=== PATIENT | male | born 1960 | race African-American/Black ===

== ENCOUNTER 2018-11-10 13:01 | Emergency (ER) | payer OTHER ==
[~2018-11-10] VITALS: Ht 188 cm; Wt 81.6 kg
--- NOTE | 2018-11-10 13:06 | NUR ---
PT BIB COWORKER C/O LLE LACERATION VS SAW X 1230 TODAY. STATES NOT UTD W/ TETANUS, PT IS AAOX4, NOT IN RESPIRATORY DISTRESS, V/S STABLE, KEPT RESTED AND COMFORTABLE.
--- NOTE | 2018-11-10 13:15 | NUR ---
SEEN AND EXAMINED BY DR. MADISON.
[2018-11-10] MEDS ORDERED: MORPHINE SULFATE INJ 4 MG/ML DISP.SYRIN ONE (13:26)
[2018-11-10] MEDS ORDERED: CEPHALEXIN MONOHYDRATE 500 MG CAPSULE PO ONE ×2 (13:28→13:30)
[2018-11-10] MEDS ORDERED: TDAP [DIPH/PERTUSSIS/TET] 0.5 ML VIAL IM ONE ×2 (13:28→13:30)
[2018-11-10] MEDS ORDERED: LIDOCAINE 1%-EPI 1:100,000 20 ML VIAL ONE ×2 (13:28→13:35)
[2018-11-10] MEDS ORDERED: ONDANSETRON 4 MG TAB.RAPDIS ONE (13:28)
[2018-11-10] MEDS ORDERED: LIDOCAINE 1%-EPI 1:100,000 50 ML VIAL IJ ONE (13:30)
[2018-11-10] MEDS ORDERED: MORPHINE SULFATE INJ 2 MG/ML DISP.SYRIN IM ONE (13:30)
[2018-11-10] MEDS ORDERED: ONDANSETRON 4 MG TAB.RAPDIS SL ONE (13:30)
--- NOTE | 2018-11-10 13:30 | NUR ---
FREELANCE DIRECTOR AT BEDSIDE FOR XRAY.
[2018-11-10] MEDS ORDERED: CEFAZOLIN 1 GM in IV D5W 50 ML IV STA (13:38)
[2018-11-10] MEDS ORDERED: HYDROMORPHONE INJ 0.5 MG/0.5 ML SYRINGE IV ONE (14:00)
[2018-11-10] MEDS ORDERED: ONDANSETRON HCL/PF 4 MG/2 ML VIAL IV ONE (14:00)
--- NOTE | 2018-11-10 14:06 | NUR ---
[facility] CALLED. EXPECTING CALL FROM THE DR POWDER LINE REPAIRER
[2018-11-10 14:07] LABS: BASOPHILS # (AUTO) 0.1 /CMM (0.0-0.2); HEMATOCRIT 44 % (39-51); HEMOGLOBIN 14.8 g/dL (13.5-17.5); LYMPHOCYTES # (AUTO) 1.9 /CMM (0.8-4.8); LYMPHOCYTES % (AUTO) 33.8 % (20.0-44.0); MEAN CORPUSCULAR HGB CONC 34 g/dl (31.0-36.0); MEAN CORPUSCULAR VOLUME 89 fL (80-96); MONOCYTES # (AUTO) 0.4 /CMM (0.1-1.30); MONOCYTES % (AUTO) 7.2 % (2.0-12.0); NEUTROPHILS # (AUTO) 3.3 /CMM (1.8-8.9); PLATELET COUNT (AUTO) 218 /CMM (150-450); RED BLOOD CELL COUNT(AUTO) 4.94 MIL/uL (4.5-6.0); WHITE BLOOD COUNT (AUTO) 5.8 K/uL (4.3-11.0)
[2018-11-10] MEDS ORDERED: HYDROMORPHONE 1 MG/1 ML DISP.SYRIN ONE (14:10)
[2018-11-10] MEDS ORDERED: ONDANSETRON HCL/PF 4 MG/2 ML VIAL ONE (14:10)
[2018-11-10 14:18] LABS: POTASSIUM 3.9 mmol/L (3.5-5.1)
[2018-11-10 14:23] LABS: ALBUMIN 3.4 g/dL (3.4-5.0); BILIRUBIN,TOTAL 0.5 mg/dL (0.2-1.0)
--- NOTE | 2018-11-10 14:31 | NUR ---
SUTURING DONE BY LINNETTE GRIMM.
--- NOTE | 2018-11-10 14:58 | NUR ---
CALLED [facility] ORDER CLERK INFORMED ME THAT THE [facility] IS INFORMED AND WILL BE CALLING
--- NOTE | 2018-11-10 15:48 | NUR ---
AWAITING ORTHO CONSULT.
--- NOTE | 2018-11-10 17:03 | NUR ---
DAUGHTER CALLED AND ASKED FOR AN UPDATE. HER CALL BACK IS [phone]
--- NOTE | 2018-11-10 17:24 | NUR ---
SUTURING DONE BY LINNETTE GRIMM.
[2018-11-10 17:25] VITALS: BP 122/71
--- NOTE | 2018-11-10 17:25 | NUR ---
WOUND WRAPPING, KNEE IMMOBILZER APPLIED BY STRATEGIC CONSULTANT.
--- NOTE | 2018-11-10 17:55 | NUR ---
IV removed. Catheter intact and site benign. Pressure and 4x4 applied to site. No bleeding noted. Patient discharged to home in stable condition. Written and verbal after care instructions given. Patient verbalizes understanding of instruction.
== END 2018-11-10 18:08 | disposition home or self-care (01) ==
LOC: ER 13:03
DX: S71.112A Laceration without foreign body, left thigh, initial encounter (principal); Z98.890 Other specified postprocedural states; W31.2XXA Contact with powered woodworking and forming machines, initial encounter; Y93.89 Activity, other specified; Y92.89 Other specified places as the place of occurrence of the external cause; Y99.8 Other external cause status
CPT/HCPCS: 36415; 73560-TC; 80053-TC; 85025-TC; 85730-TC; 90715; A6402; A6403; J0690; J1170; J2270; J2405; J3490; J7060; Q0162